=== PATIENT | female | born 1975 | race Two or more races ===

== ENCOUNTER 2018-09-21 22:30 | Emergency (ER) | payer OTHER ==
[~2018-09-21] VITALS: Ht 160 cm; Wt 53.5 kg
[2018-09-22] MEDS ORDERED: ULTRAM50 MG PO (03:09)
[2018-09-22] MEDS ORDERED: DICLOFENAC POTA50 MG PO (03:09)
[2018-09-22] MEDS ORDERED: CIPRO500 MG PO (03:13)
== END 2018-09-22 03:17 | disposition home or self-care (01) ==
LOC: ER 22:30
DX: N83.291 Other ovarian cyst, right side (principal); N39.0 Urinary tract infection, site not specified; R10.2 Pelvic and perineal pain